=== PATIENT | male | born 1990 | race Caucasian/White ===

== ENCOUNTER 2018-03-22 17:37 | Outpatient (REF) | payer OTHER, SELFPAY ==
[2018-03-22 21:36] LABS: ALT 68 U/L (12-78); AST 38 U/L (15-37); Albumin 4.4 g/dL (3.4-5.0); Alkaline Phosphatase 61 U/L (46-116); Anion Gap 9.5 mmol/L (3-11); BUN 16 mg/dL (7-18); Bilirubin, Total 0.5 mg/dL (0.2-1.0); CO2 27.5 mmol/L (21.0-32.0); CREATININE 1.16 mg/dL (0.70-1.30); Calcium 9.5 mg/dL (8.5-10.1); Chloride 102 mmol/L (98-107); Glucose 95 mg/dL (70-100); Potassium 3.8 mmol/L (3.5-5.1); Sodium 139 mmol/L (136-145); Total Protein 7.8 g/dL (6.4-8.2)
== END 2018-03-22 17:57 ==
LOC: NCHCN 17:37
PROVIDERS: PCP Nurse Practitioner Family; Visit Provider Nurse Practitioner Family
DX: R74.0 Nonspecific elevation of levels of transaminase and lactic acid dehydrogenase [LDH] (principal); I10 Essential (primary) hypertension; E66.3 Overweight
CPT/HCPCS: 80053

== ENCOUNTER 2018-09-13 16:24 | Outpatient (REF) | payer OTHER, SELFPAY ==
[2018-09-13 21:16] LABS: ALT 58 U/L (12-78); AST 39 U/L (15-37); Albumin 4.5 g/dL (3.4-5.0); Alkaline Phosphatase 68 U/L (46-116); Bilirubin, Direct 0.22 mg/dL (0.00-0.20); Bilirubin, Total 0.7 mg/dL (0.2-1.0); Total Protein 8.2 g/dL (6.4-8.2)
== END 2018-09-13 16:44 ==
LOC: NCHCN 16:24
PROVIDERS: PCP Nurse Practitioner Family; Visit Provider Nurse Practitioner Family
DX: R74.0 Nonspecific elevation of levels of transaminase and lactic acid dehydrogenase [LDH] (principal); I10 Essential (primary) hypertension; E66.3 Overweight
CPT/HCPCS: 80076

== ENCOUNTER 2020-03-17 19:03 | Outpatient (REF) | payer OTHER, SELFPAY ==
[2020-03-19 15:30] LABS: COVID-19 RT-PCR UVMMC Result Positive (Negative)
== END 2020-03-17 19:23 ==
LOC: NCHCN 19:03
PROVIDERS: PCP Nurse Practitioner Family; Visit Provider Nurse Practitioner Family
DX: Z20.828 Contact with and (suspected) exposure to other viral communicable diseases (principal)
CPT/HCPCS: U0003

== ENCOUNTER → 2020-03-31 11:38 | Outpatient (REF) | payer OTHER, SELFPAY ==
[2020-03-31 22:33] LABS: ALT 71 U/L (16-63); AST 30 U/L (15-37); Albumin 4.7 g/dL (3.4-5.0); Alkaline Phosphatase 60 U/L (46-116); Anion Gap 7.8 mmol/L (3-11); BUN 14 mg/dL (7-18); Bilirubin, Total 0.6 mg/dL (0.2-1.0); CO2 27.2 mmol/L (21.0-32.0); CREATININE 1.02 mg/dL (0.70-1.30); Calcium 9.2 mg/dL (8.5-10.1); Calculated LDL 72 mg/dL (<100); Chloride 104 mmol/L (98-107); Cholesterol 148 mg/dL (<200); Glucose 81 mg/dL (74-106); HDL Cholesterol 37 mg/dL (40-60); Potassium 4.5 mmol/L (3.5-5.1); Sodium 139 mmol/L (136-145); Total Protein 8.2 g/dL (6.4-8.2); Triglyceride 198 mg/dL (<150)
[2020-03-31 22:46] LABS: Bilirubin, Direct 0.14 mg/dL (0.00-0.20)
== END ==
LOC: NCHCN 11:38
PROVIDERS: PCP Nurse Practitioner Family; Visit Provider Nurse Practitioner Family
DX: I10 Essential (primary) hypertension (principal); R74.01 Elevation of levels of liver transaminase levels; E66.3 Overweight
CPT/HCPCS: 80053; 80061; 80076

== ENCOUNTER 2020-06-04 03:58 | Outpatient (CLI) | payer OTHER, SELFPAY ==
--- NOTE | 2020-06-04 | DI.US_ITS ---
EXAM: US ABDOMEN CLINICAL HISTORY: ELEVATED TRANSAMINASES, R74.0 TECHNIQUE: Ultrasound abdomen performed using standard protocol. COMPARISON: No exams were available for comparison FINDINGS: ABDOMINAL AORTA AND IVC: Visualized portions normal caliber. PANCREAS: Normal where visualized. LIVER: There is diffuse increased echogenicity consistent with fatty infiltration. The liver measure s 16.3 cm in length. Hepatopedal flow in the Portal Vein. GALLBLADDER: No evidence of cholelithiasis. No evidence of wall thickening. No pericholecystic fluid identified. BILIARY SYSTEM: Common bile duct measures < 7 mm. No intrahepatic biliary ductal dilation. HAYNES'S SIGN: Negative. KIDNEYS: Kidneys are symmetric in size. No evidence of renal calculi. No evidence of hydronephrosis. No renal mass or cyst identified. SPLEEN: Not enlarged. ASCITES: None seen. IMPRESSION: Hepatic steatosis. DATA REPOSITORY:
== END 2020-06-04 04:18 ==
PROVIDERS: PCP Nurse Practitioner Family; Visit Provider Nurse Practitioner Family
DX: K76.0 Fatty (change of) liver, not elsewhere classified (principal)
CPT/HCPCS: 76700

== ENCOUNTER 2020-10-29 17:17 | Outpatient (REF) | payer OTHER, SELFPAY ==
[2020-11-04 22:00] LABS: Specimen WB Whole Blood
== END 2020-10-29 17:18 | disposition home or self-care (01) ==
LOC: NCHCN 17:17
PROVIDERS: PCP Nurse Practitioner Family; Visit Provider Nurse Practitioner Family
DX: R78.89 Finding of other specified substances, not normally found in blood (principal); K76.0 Fatty (change of) liver, not elsewhere classified; R74.01 Elevation of levels of liver transaminase levels
CPT/HCPCS: 81256

== ENCOUNTER 2022-06-30 15:48 | Outpatient (REF) | payer OTHER, SELFPAY ==
[2022-06-30 21:33] LABS: HGB 15.1 g/dL (13.5-17.5); MCH 30.1 pg (27.0-33.0); MCV 84 fL (80-95); MPV 11.5 fL (8.0-11.0); Platelet Count 337 10^3/uL (130-400); RBC 5.02 10^6/uL (4.36-5.78); RDW 11.9 % (11.8-14.1); RDW-SD 36.5 fL; WBC 6.74 10^3/uL (4.4-10.8)
[2022-06-30 21:50] LABS: ALT 95 U/L (16-63); AST 53 U/L (15-37); Albumin 4.6 g/dL (3.4-5.0); Alkaline Phosphatase 70 U/L (46-116); Anion Gap 10.3 mmol/L (3-11); BUN 15 mg/dL (7-18); Bilirubin, Total 0.6 mg/dL (0.2-1.0); CO2 26.7 mmol/L (21.0-32.0); CREATININE 1.4 mg/dL (0.70-1.30); Calcium 9.3 mg/dL (8.5-10.1); Chloride 104 mmol/L (98-107); Estimated GFR 67.64 (mL/min/1.73m2); Glucose 116 mg/dL (74-106); Potassium 3.8 mmol/L (3.5-5.1); Sodium 141 mmol/L (136-145); Total Protein 8.2 g/dL (6.4-8.2)
== END 2022-06-30 15:49 | disposition home or self-care (01) ==
LOC: NCHCN 15:48
PROVIDERS: PCP Nurse Practitioner Family; Visit Provider Nurse Practitioner Family
DX: I10 Essential (primary) hypertension (principal); K76.0 Fatty (change of) liver, not elsewhere classified; R74.01 Elevation of levels of liver transaminase levels; E66.3 Overweight
CPT/HCPCS: 80053; 85027

== ENCOUNTER 2023-01-26 16:05 | Outpatient (REF) | payer OTHER, SELFPAY ==
[2023-01-26 15:11] LABS: Abs Immature Grans 0.01 10^3/uL (0.0-0.06); Absolute Basophil Count 0.03 10^3/uL (0.0-0.2); Absolute Eosinophil Count 0.29 10^3/uL (0.0-0.7); Absolute Lymphocyte Count 2.09 10^3/uL (1.2-3.4); Absolute Monocyte Count 0.51 10^3/uL (0.1-0.8); Absolute Neutrophil Count 3.43 10^3/uL (1.2-6.7); Basophils % 0.5; Eosinophils % 4.6; HGB 15.4 g/dL (13.5-17.5); Immature Grans % 0.2; Lymphocytes % 32.9; MCH 28.7 pg (27.0-33.0); MCHC 34.2 % (32.0-36.0); MCV 84 fL (80-95); MPV 10.6 fL (8.0-11.0); Neutrophils % 53.8; Platelet Count 357 10^3/uL (130-400); RBC 5.36 10^6/uL (4.36-5.78); RDW 11.9 % (11.8-14.1); RDW-SD 35.8 fL; WBC 6.36 10^3/uL (4.4-10.8)
[2023-01-26 15:49] LABS: ALT 60 U/L (16-63); AST 28 U/L (15-37); Albumin 4.5 g/dL (3.4-5.0); Alkaline Phosphatase 73 U/L (46-116); Anion Gap 12.4 mmol/L (3-11); BUN 11 mg/dL (7-18); Bilirubin, Total 0.6 mg/dL (0.2-1.0); CO2 24.6 mmol/L (21.0-32.0); CREATININE 1.1 mg/dL (0.70-1.30); Calcium 9.4 mg/dL (8.5-10.1); Calculated LDL 51 mg/dL (<100); Chloride 103 mmol/L (98-107); Cholesterol 124 mg/dL (<200); Estimated GFR 89.78 (mL/min/1.73m2); Ferritin 481 ng/mL (26-388); Glucose 99 mg/dL (74-106); HDL Cholesterol 38 mg/dL (40-60); Potassium 4.1 mmol/L (3.5-5.1); Sodium 140 mmol/L (136-145); Total Protein 8.1 g/dL (6.4-8.2); Triglyceride 177 mg/dL (<150)
== END 2023-01-26 16:06 | disposition home or self-care (01) ==
LOC: NCHCN 16:05
PROVIDERS: PCP Nurse Practitioner Family; Visit Provider Nurse Practitioner Family
DX: I10 Essential (primary) hypertension (principal); E66.3 Overweight; K30 Functional dyspepsia; R78.89 Finding of other specified substances, not normally found in blood; N28.9 Disorder of kidney and ureter, unspecified
CPT/HCPCS: 80053; 80061; 82728; 85025

== ENCOUNTER 2024-02-01 14:41 | Outpatient (REF) | payer OTHER, SELFPAY ==
--- OUTSIDE RECORDS SUMMARY | 2024-02-01 14:53 | XMS_ITS | Encounter Summary ---
Author Organization [facility] [place] [address] Care Team Providers Care Account Services Analyst Name Role Phone Christi Oneill APRN Primary Care Provider [phone] Encounter Details Date Type Department Care Team (Late st Contact Info) Description 04/21/2019 [place]phone [place] [address] Fernando Pacheco PA [facility] [place] [address] Social History Tobacco Use Types Packs/Day Years Used Date Smoking Tobacco: Never Smokeless Tobacco: Never Alcohol Use Standard Drinks/Week Comments Not Currently 0 (1 standard drink = 0.6 oz pur e alcohol) Sex and Gender Information Value Date Recorded Sex Assigned at Not on file Gender Identity Not on file Sexual Orientation Not on file documented as of this encounter Miscellaneous Notes * Telephone Encounter - Fernando Pacheco PA - 04/21/2019 8:51 AM EST XR reviewed. Stable spinal alignment. Continue in collar for 6 more weeks and FU in clinic with repeat x-rays and likely collar clearance. Discussed with patient. documented in this encounter Plan of Treatment Not on file documented as of this encounter Visit Diagnoses Not on filedocumented in this encounter Care Teams Account Services Analyst Relationship Specialty Start Date End Date Christi Oneill APRN [address] [place] [address] PCP - General Family Medicine 03/06/19 documented as of this encounter
--- OUTSIDE RECORDS SUMMARY | 2024-02-01 14:53 | XMS_ITS | Encounter Summary ---
Author Organization [facility] [place] [address] Care Team Providers Care Batch Room Technician Name Role Phone Unavailable Primary Care Provider Unavailabl e Encounter Details Date Type Department Care Team (Late st Contact Info) Description 03/05/2019 5:40 PM EST Ancillary Procedure Radiology Library at [facility] [place] [address] Sriram Pelayo MD [facility] [place] [address] Social History Tobacco Use Types Packs/Day Years Used Date Smoking Tobacco: Never Assessed Sex and Gender Information Value Date Recorded Sex Assigned at Not on file Gender Identity Not on file Sexual Orientation Not on file documented as of this encounter Plan of Treatment Not on file documented as of this encounter Procedures Procedure Name Priority Date/Time Associated Diagnosis Comments FILM LIBRARY STORAGE ONLY CT SPINE Routine 03/05/2019 5:36 PM EST documented in this encounter Results * Film Library- Storage Only CT Spine (03/05/2019 5:36 PM EST) Narrative RAD - 03/05/2019 5:36 PM EST This exam is auto-finalizing. It's purpose is for storage only. Sriram Pelayo MD IMG FILM LIBRARY ORD ERABLES [facility] [place] documented in this encounter Visit Diagnoses Not on filedocumented in this encounter
--- OUTSIDE RECORDS SUMMARY | 2024-02-01 14:53 | XMS_ITS | Clinical Summary ---
Author Organization [facility] Address [address] [place] [address] Care Team Providers Care Certified Professional Coder Name Role Phone Unknown, Provider Primary Care Provider Unava ilable Social History Tobacco Use Types Packs/Day Years Used Date Smoking Tobacco: Never Assessed Interpersonal Safety Answer Date Record ed Physically Hurt Never 03/18/2020 Verbally Threaten Not on file 03/18/2020 Sex and Gender Information Value Date Recorded Sex Assigned at Not on file Gender Identity Not on file Sexual Orientation Not on file Plan of Treatment Health Maintenance Due Date Last Done Comments Hepatitis C Screen 1990 Hepatitis B Vaccine (1 of 3 - 19+ 3-dose series) 01/03 COVID-19 Vaccine (2022- season) 2022 Care Teams Certified Professional Coder Relationship Specialty Start Date End Date Unknown, Provider, PCP - General 10/07/21
--- OUTSIDE RECORDS SUMMARY | 2024-02-01 14:53 | XMS_ITS | Encounter Summary ---
Author Organization [facility] Address [address] [place] [address] Care Team Providers Care Lease Administration Analyst Name Role Phone Unknown, Provider Primary Care Provider Unava ilable Encounter Details Date Type Department Care Team (Late st Contact Info) Description 03/18/2020 Lab Requisition [facility] Pathology & Laboratory Medicine - [facility] [address] [place] [address] Outr Resulting Lab, Provider Social History Tobacco Use Types Packs/Day Years [...] Procedure Name Priority Date/Time Associated Diagnosis Comments ZZCOVID-19 TEST [facility] PCR Today 03/17/2020 13:10 EST COVID-19 TESTING Routine 03/17/2020 13:1 0 EST documented in this encounter Results * COVID-19 TEST [facility] PCR (03/17/2020 13:10 EST) Swab ENTIRE NASOPHARYNX / Unknown 03/17/2020 13:10 EST 03/18/2020 16:56 EST Provider Outr Resulting Lab MICROBIOLOGY - GENERAL ORDERABLES [facility] [address] [place] [address] * (ABNORMAL) COVID-19 TESTING (03/17/2020 13:10 EST) COVID-19 rt-PCR Result Positive(AA) Negative 03/19/2020 14:36 EST [facility] Comment: Positive results are indicative of active infection with 2019-nCoV but do not rule out bacterial infection or co-infection with other viruses. This test was developed and its performance characteristics determined by [facility]. It has not been cleared or approved by the US Food and Drug Administration. FDA does not require this test to go through premarket FDA review. This test is used for clinical purposes. It should not be regarded as investigational or for research. This laboratory is certified under the Clinical Laboratory Improvement Amendments (CLIA) as qualified to perform high complexity clinical laboratory testing. This test is based on the CDC COVID-19 Emergency Use Authorization (EUA) assay, with minor modification as defined by the FDA Performed on the [employer] 7 Flex. Performing Lab [employer] 7 [facility] 03/19/2020 14:36 EST [facility] Swab 03/17/2020 13:1 0 EST 03/18/2020 16:56 EST Provider Outr Resulting Lab MICROBIOLOGY - GENERAL ORDERABLES [facility] [address] [place] [address] documented in this encounter Visit Diagnoses Not on filedocumented in this encounter Additional Health Concerns Infection Onset Date Last Indicated Resolved Time COVID-19 03/17/2020 03/17/2020 04/16/2020 22:1 5 EST documented as of this encounter Care Teams Lease Administration Analyst Relationship Specialty Start Date End Date Unknown, Provider, PCP - General 10/07/21 documented as of this encounter
--- OUTSIDE RECORDS SUMMARY | 2024-02-01 14:53 | XMS_ITS | Encounter Summary ---
Author Organization [facility] Address [facility] [place] [address] Care Team Providers Care Practice Professional Name Role Phone NinoJoan neveshrlatricia Mcneill [place] Primary Care Provider [phone] Reason for Visit * Reason Comments Advice Only mildly displaced fle xion teardrip fracture of C3 vertebral body * Consultation (Routine) - Specialty Diagnoses / Procedures Referred By Contac t Referred To Contact Neurosurgery Diagnoses Unspecified injury of neck, initial encounter Unspecified nondisplaced fracture of third cervical vertebra, initial encounter for closed fracture Mildly displaced flexion teardrop fracture of C3 vertebral body. Procedures WORKER'S COMP Nathaniel Gil PA [address] [place] [id number] [facility] [address] [place] [address] Referral ID Status Reason Start Date Expiration Date V isits Requested Visits Authorized [id number] Consult, [facility] PCP Updated and/or Approved 03/06/2019 03/05/2020 1 1 Encounter Details Date Type Department Care Team (Late st Contact Info) Description 03/12/2019 1:30 PM EST Office [place] [address] Fernando Pacheco PA [facility] [place] [address] Closed displaced fracture of third cervical vertebra, unspecified fracture morphology, initial encounter Social History Tobacco Use Types Packs/Day Years Used Date Smoking Tobacco: Never Smokeless Tobacco: Never Alcohol Use Standard Drinks/Week Comments Not Currently 0 (1 standard drink = 0.6 oz pur e alcohol) Sex and Gender Information Value Date Recorded Sex Assigned at Not on file Gender Identity Not on file Sexual Orientation Not on file documented as of this encounter Last Filed Vital Signs Vital Sign Reading Time Taken Comments Blood Pressure 164/86 03/12/2019 1:34 PM EST Pulse 98 03/12/2019 1:34 PM EST Temperature - - Respiratory Rate - - Oxygen Saturation - - Inhaled Oxygen Concentration - - Weight 115.9 kg (255 lb 8.2 oz) 03/12/2019 1:34 PM EST Height 195.6 cm (6' 5) 03/12/2019 1:34 PM EST Body Mass Index 30.3 03/12/2019 1:34 PM EST documented in this encounter Progress Notes * Fernando Pacheco PA - 03/12/2019 1:30 PM EST Images from the original note were not included. Section of Neurosurgery Initial Consultation Note 03/12/2019 Nathaniel Gil PA [address] [place] [address] RE: Sriram Hobson : [address] Gil: Thank you for referring your patient Sriram Hobson to the Neurosurgery Clinic at [facility] for evaluation of a C3 anterior inferior chip fracture as a result of being struck in the head with the bucket of an excavator. This happened about a week ago while working at his job.He continued to work for six hours after his injury. He presented to his local urgent care center for evaluation of neck pain. He was placed in a hard cervical [place] collar after discovery of the fracture. Mr. Hobson continues to note low cervical neck pain with radiation, numbness, tingling, weakness, gait disturbance, or bowel/bladder dysfunction. He continues to work, light duty. PAST MEDICAL HISTORY: No past medical history on file. PAST SURGICAL HISTORY: No past surgical history on file. SOCIAL HISTORY: Social History Tobacco Use ??? Smoking status: Never Smoker ??? Smokeless tobacco: Never Used Substance Use Topics ??? Alcohol use: Not Currently ??? Drug use: Not Currently FAMILY HISTORY: No family history on file. CURRENT MEDICATIONS: ??? losartan (COZAAR) 100 mg Tablet ??? metoprolol succinate XL (TOPROL-XL) 25 mg Tablet Sustained Release 24 hr ??? acetaminophen (TYLENOL) 325 mg Suppository ALLERGIES: No Known Allergies REVIEW OF SYSTEMS: Full ROS completed. Pertinent findings per HPI. PHYSICAL EXAMINATION: Blood pressure 164/86, pulse 98, height 195.6 cm (6' 5), weight 115.9 kg (255 lb 8.2 oz). Awake, alert, and in no acute distress. Speech: Appropriate and fluent; answers questions appropriately. Cranial Nerves: II-XII grossly intact. Motor: Normal muscle bulk and tone. No pronator drift. Strength 5/5 in straw baler, triceps, biceps, and deltoids bilaterally. Strength 5/5 in hip flexion, knee extension, DF, and PF bilaterally. Sensation: Grossly intact to light touch in all four extremities. Reflexes: Biceps, BR, achilles, and patellar reflexes intact and symmetric; no hyperreflexia. Germain's negative bilaterally. Cerebellar: No dysmetria with finger to nose testing bilaterally. Gait: Independent and stable. Neck: Immobilized with [place] collar - good fit. RADIOGRAPHIC STUDIES: CT cervical spine wo contrast 03/05/2019 C3 anterior inferior chip fracture with. Straightening versus reversal of normal cervical lordosis centered at C3-4. XR cervical spine 03/05/2019 Re demonstrated C3 anterior inferior chip fracture and straightening of cervical lordosis. Questionable 1-2 mm retrolisthesis of C3 on C4. IMPRESSION AND PLAN: Mr. Hobson is a 29 y.o. male presenting with a C3 anterior inferior chip fracture and possible anterior longitudinal ligament injury. Based on my findings I suggest the following course of action: 1. Trial of conservative non-operative management for cervical spine fracture with probable ALL injury 2. Must wear hard cervical collar at all times (estimated 10-12 weeks in collar) 3. Activity restrictions - no lifting more than 10 lbs, no strenuous activity 4. No driving 5. Follow up x-rays in 4-6 weeks It was my pleasure to have seen and examined Mr. Hobsno. In our visit today, we discussed the patient's current condition, the natural course history without treatment and various interventional options. I will be sure to keep you updated after Mr. Hobson returns here for further follow-up. Thank monaein for your referral. Please don't hesitate to contact me if you have any further questions. Sincerely, Fernando Pacheco PA-C, MS Physician [employer] [facility] Department of Neurosurgery [address] [place] [id number] CC: Christi Oneill APRN CC: Nathaniel Gil PA [address] [place] [address] This message is confidential, intended only for the named recipient(s) and may contain information that is privileged or exempt from disclosure under applicable law. If you are not the intended recipient(s), you are notified that the dissemination, distribution or copying of this information is strictly prohibited. If you received this message in error, please notify the sender then delete this message. documented in this encounter Plan of Treatment Not on file documented as of this encounter Results * XR Cervical Spine 2 or 3 Views (05/27/2019 10:21 AM EST) Anatomical Region Laterality Modality C-spine N/A Digital Radiogra phy Impressions 05/27/2019 11:55 AM EST 1. ??Displaced C3 anterior inferior teardrop fracture redemonstrated. There is equivocal bridging bone callus deposition. 2. ??No subluxation seen. Thank you for letting us participate in the care of this patient. For questions regarding this report, please contact the number below. ? Narrative 05/27/2019 11:55 AM EST EXAMINATION: XR CERVICAL SPINE 2 OR 3 VIEWS CLINICAL HISTORY: C3 fracture, follow up, please do AP and lateral, standing in collar, , ??entered by ordering service TECHNIQUE: 2 views cervical spine, AP lateral views COMPARISON: Outside CT scan of spine, March 2019 FINDINGS: C1 to bottom of C7 are visualized. Vertebral bodies: C3- displaced flexion teardrop fracture of anterior-inferior corner is similar to CT examination. There is suggestion of bridging bone at fracture site. Disk spaces: Normal. Soft tissues: Normal. ?? Alignment: No subluxation. Loss of normal cervical lordosis in part related to collar. Procedure Note Lisa Caruso MD - 05/27/2019 EXAMINATION: XR CERVICAL SPINE 2 OR 3 VIEWS CLINICAL HISTORY: C3 fracture, follow up, please do AP and lateral,standing in collar, , entered by ordering service TECHNIQUE: 2 views cervical spine, AP lateral views COMPARISON: Outside CT scan of spine, March 2019 FINDINGS: C1 to bottom of C7 are visualized. Vertebral bodies: C3- displaced flexion teardrop fracture of anterior-inferior corner issimilar to CT examination. There is suggestion of bridging bone at fracturesite. Disk spaces: Normal. Soft tissues: Normal. Alignment: No subluxation. Loss of normal cervical lordosis in partrelated to collar. IMPRESSION 1. Displaced C3 anterior inferior teardrop fracture redemonstrated. Thereis equivocal bridging bone callus deposition. 2. No subluxation seen. Thank you for letting us participate in the care of this patient. Forquestions regarding this report, please contact the number below. Electronically signed by: ELEANOR Aparicio On License Of [facility]([phone]), at 05/27/2019 11:55 AM Trey Odonnell MD IMG DX ORDERABLES documented in this encounter Visit Diagnoses Diagnosis Closed displaced fracture of third cervical vertebra, unspecified fracture morphology, initial encounter Closed displaced fracture of third cervical vertebra, unspecified fracture morphology, initial encounter documented in this encounter Care Teams Practice Professional Relationship Specialty Start Date End Date Christi Oneill APRN [address] [place] [address] PCP - General Family Medicine 03/06/19 documented as of this encounter
--- OUTSIDE RECORDS SUMMARY | 2024-02-01 14:53 | XMS_ITS | Encounter Summary ---
Author Organization [facility] [place] [address] Care Team Providers Care Instrument Worker Name Role Phone Unavailable Primary Care Provider Unavailabl e Encounter Details Date Type Department Care Team (Late st Contact Info) Description 03/05/2019 8:30 PM EST Ancillary Procedure Radiology Library at [facility] [place] [address] Sriram Pelayo MD [facility] [place] [address] Social History Tobacco Use Types Packs/Day Years [...] Associated Diagnosis Comments FILM LIBRARY STORAGE ONLY DX SPINE Routine 03/05/2019 8:26 PM EST documented in this encounter Results * Film Library- Storage Only DX Spine (03/05/2019 8:26 PM EST) Narrative RAD - 03/05/2019 8:26 PM EST This exam is auto-finalizing. It's purpose is for storage only. Sriram Pelayo MD IMG FILM LIBRARY ORD ERABLES [facility] [place] documented in this encounter Visit Diagnoses Not on filedocumented in this encounter
--- OUTSIDE RECORDS SUMMARY | 2024-02-01 14:53 | XMS_ITS | Clinical Summary ---
Author Organization [facility] Address [address] [facility] [place] [address] Care Team Providers Care Crisis Worker Name Role Phone Christi Oneill [place] Primary Care Provider [phone] [phone] Allergies No known active allergies Medications Medication Sig Dispensed Refills Start Date End Date Status losartan (COZAAR) 100 mg Tablet TAKE ONE TABLET BY MOUTH EVERY DAY 3 12/27/2018 Active metoprolol succinate XL (TOPROL-XL) 25 mg Tablet Sustained Release 24 hr TAKE ONE TABLET BY MOUTH EVERY DAY 3 12/27/2018 Active Active Problems No known active problems Social History Tobacco Use Types Packs/Day Years Used Date Smoking Tobacco: Never Smokeless Tobacco: Never Alcohol Use Standard Drinks/Week Comments Not Currently 0 (1 standard drink = 0.6 oz pur e alcohol) Sex and Gender Information Value Date Recorded Sex Assigned at Not on file Gender Identity Not on file Sexual Orientation Not on file Last Filed Vital Signs Vital Sign Reading Time Taken Comments Blood Pressure 151/88 08/13/2020 8:51 AM EDT Pulse 58 08/13/2020 8:51 AM EDT Temperature - - Respiratory Rate - - Oxygen Saturation - - Inhaled Oxygen Concentration - - Weight 118.8 kg (262 lb) 08/13/2020 8:51 AM EDT Height 195.6 cm (6' 5) 08/13/2020 8:51 AM EDT Body Mass Index 31.07 08/13/2020 8:51 AM EDT Plan of Treatment Health Maintenance Due Date Last Done Comments HIV screen 01/03/2006 Hepatitis C Screening 01/03/2006 Lipid Screening 01/03/2006 Hepatitis B vaccine (0-59 yrs) (1) 01/03/2007 Tetanus/Diphtheria/Pertussis Vaccines (1 - Tdap) 01/03 Covid-19 Vaccine (1 - 2023-24 season) 2023 Influenza (Flu) vaccine (1 o f 1 - Influenza standard series) 12/02/2023 Care Teams Crisis Worker Relationship Specialty Start Date End Date Christi Oneill APRN [address] [place] [address] PCP - General Family Medicine 03/06/19
--- OUTSIDE RECORDS SUMMARY | 2024-02-01 14:53 | XMS_ITS | Encounter Summary ---
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 Please allow time for your provider to receive these results and explore management options, if applicable. 10/12/2021 11:[address] [facility] Final Diagnosis A. MAXILLA, RIGHT, CYST, EXCISION: - Markedly inflamed cyst lining with focal squamous epithelium. 10/12/2021 11:[address] [facility] Diagnosis Comment Sections show cyst wall with abundant acute and chronic inflammation and histiocytes. Only focal intact squamous epithelium is present for evaluation, without features of odontogenic keratocyst. Clinical and radiographic correlation is required to determine the cyst type. 10/12/2021 11:[address] [facility] Attestation There was significant resident/fellow involvement in the diagnostic evaluation of this case. By the signature below, the attending physician certifies that they have personally conducted a gross and/or microscopic examination of the described specimens and rendered or confirmed the above diagnosis. 10/12/2021 11:[address] [facility] at 1148 Clinical History 1 year history 1.0 x 1.5 cm radiolucency of R maxilla; cystic appearing lesion with lining as well as luminal material; clinical diagnosis code: D16.4 10/12/2021 11:[address] [facility] Gross Description A. Received in formalin labelled with proper patient identification (initials P, N) and cyst right maxilla are fragmented soft and slightly rubbery brown sabillon tissue fragments aggregating 2.0 x 1.4 x 1.0 cm. Entirely submitted in A1. MOLLY HEDRICK(ASCP) 10/10/2021 9:35 10/12/2021 11:[address] [facility] Resident/Elroy w: Carrillo Lozano DO 10/12/2021 11:[address] [facility] Performing Lab [facility] 10/12/2021 11:[address] [facility] Scanned Images 10/12/2021 11:[address] [facility] Tissue ORAL CAVITY SPECIMEN / Unknown 10/07/2021 9:56 EDT 10/10/2021 6:27 EDT Colton Kessler MD DMD PATHOLOGY ORDERAB LES 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
--- OUTSIDE RECORDS SUMMARY | 2024-02-01 14:53 | XMS_ITS | Encounter Summary ---
Author Organization [facility] [place] [address] Care Team Providers Care Supervisor [facility] Name Role Phone Christi Oneill APRN Primary Care Provider [phone] Reason for Visit * Consultation (Routine) - Closed Specialty Diagnoses / Procedures Referred By Yaima engel Referred To Contact Gastroenterology Diagnoses Fatty (change of) liver, not elsewhere classified Elevation of levels of liver transaminase levels liver- fatty liver Christi Oneill APRN [address] [place] [address] [facility] [address] [address] Referral ID Status Reason Start Date Expiration Date V isits Requested Visits Authorized [id number] Closed Consult, Test & Treat Connection [facility] PCP Updated and/or Approved 06/11/2020 06/11/2021 6 6 Encounter Details Date Type Department Care Team (Late st Contact Info) Description 08/13/2020 9:00 AM EDT Office [place] [address] Chelsea Reyes MD [facility] [place] [address] Elevated liver enzymes Social History Tobacco Use Types Packs/Day Years [...] Mass Index 31.07 08/13/2020 8:51 AM EDT documented in this encounter Patient Instructions * Patient Instructions* Chelsea Reyes MD - 08/13/2020 9:00 AM EDT - Lab work today to look for causes of liver disease - Diet and exercise with goal weight loss of 10% total body weight (26 lbs) - Follow up via the [facility] portal documented in this encounter Progress Notes * Chelsea Reyes MD - 08/13/2020 9:00 AM EDT Images from the original note were not included. 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 year old who had liver enzymes checked as part of physical in 2019 which were mildly elevated. His enzymes have remained mildly elevated on labs in 03/2020 and ultrasound noted hepatic steatosis. He has a history of hypertension. No hyperlipidemia or high blood glucose. Hewould previously drink a few (2-3) alcoholic beverages on weekends, but stopped 6 weeks. No family history of liver disease. He has three tattoos, all professionally done, he has been checked hepatitis B and C since his last tattoo. No other risk factors for viral hepatitis. No jaundice, melena, ascites, or hepatic encephalopathy. 12/30/20 ROS: Constitutional: no weight loss HEENT: no visual changes, no URI symptoms Cardio: no chest pain Resp: no cough, no SOB, no SANTANA or orthopnea Hem/Lymph: no new lumps or bumps on body GI: see HPI : no dysuria Integumentary: no new rashes Musculoskeletal: no new joint pains Neuro: no new numbness, weakness in extremities PAST MEDICAL/SURGICAL HISTORY 1. Hypertension MEDICATIONS Outpatient Medications Marked as Taking for the 08/13/20 encounter (Office Visit) with Sara Reyes MD Medication Sig Dispense Refill ??? losartan (COZAAR) 100 mg Tablet TAKE ONE TABLET BY MOUTH EVERY DAY 3 ??? metoprolol succinate XL (TOPROL-XL) 25 mg Tablet Sustained Release 24 hr TAKE ONE TABLET BY MOUTH EVERY DAY 3 ALLERGIES No Known Allergies SOCIAL HISTORY Social History Socioeconomic History ??? Marital status: Unknown Spouse name: Not on file ??? Number of children: Not on file ??? Years of education: Not on file ??? Highest education level: Not on file Occupational History ??? Not on file Tobacco Use ??? Smoking status: Never Smoker ??? Smokeless tobacco: Never Used Substance and Sexual Activity ??? Alcohol use: Not Currently ??? Drug use: Not Currently ??? Sexual activity: Not on file Other Topics Concern ??? Not on file Social History Narrative ??? Not on file Social Determinants of Health Financial Resource Strain: ??? Difficulty of Paying Living Expenses: Food Insecurity: ??? Worried About Running Out of Food in the Last Year: ??? Ran Out of Food in the Last Year: Transportation Needs: ??? Lack of Transportation (Medical): ??? Lack of Transportation (Non-Medical): Physical Activity: ??? Days of Exercise per Week: ??? Minutes of Exercise per Session: Stress: ??? Feeling of Stress : Social Connections: ??? Frequency of Communication with Friends and Family: ??? Frequency of Social Gatherings with Friends and Family: ??? Attends [employer] Services: ??? Active Member of Clubs or Organizations: ??? Attends Club or Organization Meetings: ??? Marital Status: Intimate Partner Violence: ??? Fear of Current or Ex-Partner: ??? Emotionally Abused: ??? Physically Abused: ??? Sexually Abused: FAMILY HISTORY There is no family history of inflammatory bowel disease, celiac disease, or colorectal cancer. There is no history of liver disease. Vitals: 08/13/20 0851 BP: 151/88 BP Location (NBP): Left arm Patient Position: Sitting BP Cuff Sizes: Adult (25-34 cm) Pulse: 58 Weight: 118.8 kg (262 lb) Height: 195.6 cm (6' 5) PHYSICAL EXAM General: Appears stated age, NAD Eyes: Normal sclera, normal conjunctiva ENT: Moist mucus membranes, normal posterior pharynx Lymph: No lymphadenopathy of the head or neck Heart: Heart sounds I and II were audible, no added sounds, no murmurs Lungs: Clear to ausculation bilaterally Abdomen: Soft, non-tender, no organomegaly, normal active bowel sounds Extremities: No peripheral edema Skin: No jaundice, no spider nevi, no palmar erythema Neuro: No asterixis, grossly intact Mental: Appropriate affect, oriented in person, place, and time RESULTS See HPI Fibroscan Results: Mean kPa: Elevated liver enzymes Mean IQR: 17% (goal is <30 %) Success rate: 100% (goal is >60%) Predicted fibrosis stage: F0-1 CAP: 356 ASSESSMENT/PLAN #1 Elevated liver enzymes, MCDANIEL We discussed based on risk factors that nonalcoholic steatohepatitis is the most likely cause of his mild liver enzyme elevation. However, other causes of liver disease need to be out ruled includingautoimmune hepatitis, PBC, alpha-1 antitrypsin deficiency, hemochromatosis, Sameer's, and celiac disease. I will work on obtaining prior viral hepatitis serologies from his PCPs office. Fortunately, his FibroScan today did not note any significant fibrosis. Discussed a goal weight loss of 10% of total body weight to help improve hepatic steatosis. I will follow-up with him via the my portal onthe results of his blood work. If no other causes of liver disease are found I would recommend annual CBC and CMP through his PCP. His age, platelet count, AST, and ALT can be used annually to calculate a FIB-4 score. If the FIB-4 score is greater than 1.45 would recommend referral back to hepatology clinic. Chelsea Ryees MD Hepatology and Gastroenterology [facility] JAYLAN Artis V: [phone] Copy: Christi H BENTON Oneill [address] / [facility] [address] Time spent reviewing records prior to this encounter: 3 minutes Time spent during encounter with patient including counselin minutes Time spent documenting encounter after office visit: 3 minutes Approximate total time devoted to this single encounter on the day of the encounter: 48 minutes This is exclusive of the time spent performing the Fibroscan procedure. documented in this encounter Procedure Notes * Chelsea Reyes MD - 08/13/2020 9:00 AM EDTAssociated Order(s): FIBROSCAN Procedure(s): FIBROSCAN Pre-Procedure Diagnose(s): Elevated liver enzymes [facility] Liver Fibrosis Assessment Report Indication: Elevated liver enzymes Performed by: Chelsea Reyes MD Procedure: Vibration Controlled Transient Elastography (VCTE) or Fibroscan [place] Protocol: Patient's identity, procedure and site were verified, confirmatory pause performed. Discussed procedure including risks and potential complications. Questions answered. Patient verbalizes understanding and wishes to proceed with Fibroscan assessment. Patient was placed in the supine position with right arm in maximum abduction to allow optimal exposure of right lateral abdomen. Patient was briefly assessed. Testing was performed in the mid-axillary location. 50Hz Shear Wave pulses were applied and the resulting Shear Wave and Propagation Speed was detected with a 3.5MHz ultrasonic signal, using the Fibroscan probe. Skin to liver capsule distance and liver parenchyma were accessed during the entire examination with the Fibroscan probe. Patient was instructed to breathe normally and abstain from sudden movements during the procedure. At least ten Sheer Waves were produced; individual measurements of each Shear Wave were calculated. Patient tolerated the procedure well with no complications. Fibroscan Results: Median kPa: 4.1 Mean IQR: 17% (goal is <30 %) Number of valid measurements: 11 (at least 10 required) Number of invalid measurements: 0 Predicted fibrosis stage: F0-1 CAP (dB/m): 356 Estimated steatosis grade: 3/3 % hepatocytes affected: >66% Interpretation: Based on this Fibroscan result, history, clinical examination and review of laboratory and radiological data, this patient likely has stage F0-1 liver fibrosis. documented in this encounter Plan of Treatment Not on file documented as of this encounter Procedures Procedure Name Priority Date/Time Associated Diagnosis Comments HEMOGRAM Routine 08/13/2020 10:06 AM EDT Elevated liver enzymes DIFFERENTIAL, AUTOMATED Routine 08/14/19 10:06 AM EDT Elevated liver enzymes HC IRON BINDING CAPACITY Routine 08/13/2020 10:06 AM EDT Elevated liver enzymes HC A1AT (ALPHA-1 ANTITRYPSIN) Routine 08/13/2020 10:06 AM EDT Elevated liver enzymes HC PCH MITOCHONDRIAL ANTIBODY Routine 08/13/2020 10:06 AM EDT Elevated liver enzymes HC VENIPUNCTURE Routine 08/13/2020 10:06 AM EDT Elevated liver enzymes HC CERULOPLASMIN Routine 08/13/2020 10:0 6 AM EDT Elevated liver enzymes HC PCH SMOOTH MUSCLE AB, SERUM Routine 08/13/2020 10:06 AM EDT Elevated liver enzymes HC PROTHROMBIN TIME Routine 08/13/2020 1 0:06 AM EDT Elevated liver enzymes HC CBC,PLT & AUTO DIFF Routine 10:06 AM EDT Elevated liver enzymes HC PCH ANATITRE (ANDPATTERN) Routine 08/13/2020 10:06 AM EDT Elevated liver enzymes HC SERUM PROT. ELECTROPHORESIS Routine 08/13/2020 10:06 AM EDT Elevated liver enzymes HC IGG, SERUM Routine 08/13/2020 10:06 AM EDT Elevated liver enzymes HC FERRITIN, SERUM Routine 08/13/2020 10 :06 AM EDT Elevated liver enzymes COMPREHENSIVE METABOLIC PANEL Routine 08/13/2020 10:06 AM EDT Elevated liver enzymes [id number] Routine 08/13/2020 9:00 AM EDT Elevated liver enzymes documented in this encounter Results * Differential, Automated (08/13/2020 10:06 AM EDT) Neutrophil % 48.5 % [facility] Neutrophil Absolute 2.99 1.70 - 6.10 x10(3)/[facility] Lymph % 38.3 % [facility] Lymphocytes Abs 2.4 0.9 - 3.2 x10(3)/[facility] Monocyte % 8.3 % [facility] Monocyte Abs 0.5 0.3 - 0.9 x10(3)/[facility] Eos % 4.4 % [facility] Eosinophils Abs 0.3 0.0 - 0.4 x10(3)/[facility] Basophil % 0.3 % [facility] Baso Absolute 0.0 0.0 - 0.1 x10(3)/[facility] Immature Gran % 0.20 % [facility] Comment: Immature granulocytes(IG's)percentage and absolute count will include metamyelocytes, myelocytes, and promyelocytes. Blood smears from CBCs yielding IG's will be scanned manually for concordance. If this scan disagrees with the automated IG or if promyelocytes are noted, a manual differential will be performed. Immature Gran Absolute 0.01 0.00 - 0.04 x10(3)/[facility] Blood specimen (specimen) 08/13/2020 10:06 AM EDT 08/13/2020 10:12 AM EDT Narrative Resulting Agency Comment Spec In Lab Chelsea Reyes MD HEMATOLOGY ORDERABLE S [facility] [place] [address] * Hemogram (08/13/2020 10:06 AM EDT) [facility] White Blood Cell 6.2 4.0 - 9.5 x10(3)/[facility] Red Blood Cell 5.13 4.58 - 5.54 x10(6)/[facility] Hemoglobin 14.9 13.7 - 16.5 gm/dL [facility] Hematocrit 43.6 40.5 - 48.5 % [facility] Mean Cell Volume 85.0 82.9 - 93.1 fL [facility] Mean Cell Hemoglobin 29.0 27.5 - 32.1 pg [facility] Mean Cell Hemoglobin Concentration 34.2 32.0 - 35.7 gm/dL [facility] Platelet 296 145 - 357 x10(3)/[facility] RDW Standard Deviation 36.2 36.0 - 45.0 [facility] RDW coefficient of variation 11.9 11.4 - 13.8 % [facility] Mean Platelet Volume 9.8 7.6 - 12.9 [facility] NRBC% auto 0.0 % [facility] NRBC Absolute 0.000 0.000 - 0.000 x10(3)/[facility] Blood specimen (specimen) 08/13/2020 10:06 AM EDT 08/13/2020 10:12 AM EDT Narrative Resulting Agency Comment Spec In Lab Chelsea Reyes MD HEMATOLOGY ORDERABLE S [facility] [place] [address] * Tissue transglutaminase, IgA (08/13/2020 10:06 AM EDT) Pathologist [facility] TTG IgA Ab 1.0 0.1 - 10.0 u/ml [facility] Comment: Negative = <7 U/mL Equivocal = 7-10 U/mL Positive = >10 U/mL Blood 08/13/2020 10:0 6 AM EDT 08/13/2020 3:04 PM EDT Narrative Resulting Agency Comment Spec In Lab Chelsea Reyes MD IMMUNOLOGY ORDERABLE S Performing Organization Address City/[facility]/ZIP Co de Phone Number [facility] [place] [address] * Ceruloplasmin (08/13/2020 10:06 AM EDT) Ceruloplasmin 15.0 15.0 - 30.0 mg/dL [facility] Blood specimen (specimen) 08/13/2020 10:06 AM EDT 08/13/2020 10:12 AM EDT Narrative Resulting Agency Comment Spec In Lab Chelsea Reyes MD CHEMISTRY ORDERABLES Performing Organization Address [facility] Co de Phone Number [facility] [place] [address] * A1AT Serum Concentration (08/13/2020 10:06 AM EDT) [facility] A1AT 112 90 - 200 mg/dL [facility] Blood specimen (specimen) 08/13/2020 10:06 AM EDT 08/13/2020 10:12 AM EDT Narrative Resulting Agency Comment Spec In Lab Chelsea Reyes MD CHEMISTRY ORDERABLES Performing Organization Address [facility] Co de Phone Number [facility] [place] [address] * (ABNORMAL) Ferritin (08/13/2020 10:06 AM EDT) Ferritin 616(H) 30 - 400 ng/mL [facility] Comment: Pediatric reference ranges not verified at [facility] interpret with caution. Reference ranges for females greater than 50 years of age approach values for men, i.e., 30-400 ng/mL. Blood specimen (specimen) 08/13/2020 10:06 AM EDT 08/13/2020 10:12 AM EDT Narrative Resulting Agency Comment Spec In Lab Chelsea Reyes MD CHEMISTRY ORDERABLES Performing Organization Address City/[facility]/ZIP Co de Phone Number [facility] [place] [address] * (ABNORMAL) Iron and TIBC (08/13/2020 10:06 AM EDT) Iron 133 45 - 160 mcg/dL [facility] TIBC 253 250 - 450 mcg/dL [facility] Iron Saturation 53(H) 20 - 50 % [facility] Blood specimen (specimen) 08/13/2020 10:06 AM EDT 08/13/2020 10:12 AM EDT Narrative Resulting Agency Comment Spec In Lab Chelsea Reyes MD CHEMISTRY ORDERABLES Performing Organization Address City/[facility]/ZIP Co de Phone Number [facility] [place] [address] * Protein Electrophoresis, serum (08/13/2020 10:06 AM EDT) Total Prot Electrophoresis 7.6 6.1 - 8.0 gm/dL [facility] Albumin Electrophoresis 5.08 3.60 - 6.00 gm/dL [facility] Alpha 1 Globulin 0.13 0.10 - 0.30 gm/dL [facility] Alpha 2 Globulin 0.55 0.40 - 0.90 gm/dL [facility] Beta Globulin 0.65 0.50 - 1.00 gm/dL [facility] Gamma Globulin 1.18 0.50 - 1.30 gm/dL [facility] M1 Band None Detected None Detected [facility] Blood specimen (specimen) 08/13/2020 10:06 AM EDT 08/13/2020 10:12 AM EDT Narrative Resulting Agency Comment Spec In Lab Chelsea Reyes MD CHEMISTRY ORDERABLES Performing Organization Address [facility]/ZIP Co de Phone Number [facility] [place] [address] * IgG (08/13/2020 10:06 AM EDT) Immunoglobulin G 1,443 700 - 1,600 mg/dL [facility] Comment: Pediatric Reference Intervals obtained from the Caliper Reference Interval project. http://www.[employer].ca/caliperproject/index.html Blood specimen (specimen) 08/13/2020 10:06 AM EDT 08/13/2020 10:12 AM EDT Narrative Resulting Agency Comment Spec In Lab Chelsea Reyes MD CHEMISTRY ORDERABLES Performing Organization Address [facility] Co de Phone Number [facility] [place] [address] * Mitochondrial Antibody, M2 (08/13/2020 10:06 AM EDT) Pathologist [facility] Mitochon Ab (JULY) <0.1 <0.1 (Negative) U [facility] Comment: Test Performed by: [facility] [place] [address] Remote Sensing Technologist: Eliazar Garcia M.D. Ph.D.; CLIA# [id number] Blood 08/13/2020 10:0 6 AM EDT 08/13/2020 12:49 PM EDT Narrative Resulting Agency Comment Spec In Lab Chelsea Reyes MD LAB SEND OUT ORDERAB LES Performing Organization Address [facility] Co de Phone Number [facility] [place] [address] * Smooth Muscle Antibody (08/13/2020 10:06 AM EDT) Pathologist [facility] Sm Muscle Ab (MAY) Negative Negative [facility] Comment: Negative: No further testing will be performed ADDITIONAL INFORMATION This test was developed and its performance characteristics determined by [facility] in a manner consistent with CLIA requirements. This test has not been cleared or approved by the U.S. Food and Drug Administration. Test Performed by: [facility] [address] [place] [address] Remote Sensing Technologist: Eliazar Garcia M.D. Ph.D.; CLIA# [id number] Blood 08/13/2020 10:0 6 AM EDT 08/13/2020 12:49 PM EDT Narrative Resulting Agency Comment Spec In Lab Chelsea Reyes MD LAB SEND OUT ORDERAB LES [facility] [place] [address] * NELLY ([facility]P/APD/[facility]) (08/13/2020 10:06 AM EDT) NELLY Ab Screen Test ?Result ? Flag ??Unit ??RefValue Antinuclear Ab, HEp-2 ? <1:80 (Negative) ? <1:80 (Negative) ??Substrate, S ? ADDITIONAL INFORMATION --------- ?Method: Immunofluorescence using HEp-2 cellular substrate. ?Test Performed by: ?[facility] ?[address] [place] [address] ?Remote Sensing Technologist: Eliazar Garcia M.D. Ph.D.; IA# [id number] [facility] Blood 08/13/2020 10:0 6 AM EDT 08/13/2020 12:49 PM EDT Narrative Resulting Agency Comment Spec In Lab Chelsea Reyes MD LAB SEND OUT ORDERAB LES Performing Organization Address [facility] Co de Phone Number [facility] [place] [address] * Prothrombin Time (08/13/2020 10:06 AM EDT) Prothrombin Time 11.1 9.4 - 12.5 sec [facility] International Normalization Ratio 1.0 [facility] Comment: An INR <2.0 indicates adequate procoagulant activity for hemostasis in most patients without underlying bleeding disorders, though the INR may not adequately reflect hemostatic capacity in patients with liver disease and synthetic impairment. The recommended target INR range for therapeutic anticoagulation is 2.0 ? 3.0 for most applications, though lower and higher ranges may be appropriate depending on clinical circumstances. Blood specimen (specimen) 08/13/2020 10:06 AM EDT 08/13/2020 10:12 AM EDT Narrative Resulting Agency Comment Spec In Lab Chelsea Reyes MD HEMATOLOGY ORDERABLE S Performing Organization Address [facility]/ZIP Co de Phone Number [facility] [place] [address] * (ABNORMAL) Comprehensive metabolic panel (non-fasting) (08/13/2020 10:06 AM EDT) Glucose 83 65 - 199 mg/dL [facility] Comment:Diabetes: >=200 mg/d L plus symptoms Blood Urea Nitrogen 14 10 - 20 mg/dL [facility] Creatinine 1.04 0.80 - 1.50 mg/dL [facility] Sodium 139 135 - 145 mmol/L [facility] Potassium 4.7 3.5 - 5.0 mmol/L [facility] Comment: Please note: ??Patients with WBC >100,000 may have falsely elevated Potassium levels. ??For accurate Potassium quantification in these patients send serum separator tube (gold top) for subsequent determinations. ??Contact the Clinical Chemistry Laboratory if there are any questions. Chloride 104 98 - 107 mmol/L [facility] Carbon Dioxide 26 22 - 31 mmol/L [facility] Anion Gap 9 5 - 15 mmol/L [facility] Calcium 9.7 8.5 - 10.5 mg/dL [facility] Protein, Total 7.9 6.1 - 8.0 gm/dL [facility] Albumin 4.8 3.2 - 5.2 gm/dL [facility] Aspartate Aminotransferase 45(H) 0 - 39 unit/L [facility] Alanine Aminotransferase 66(H) 0 - 55 unit/L [facility] Alkaline Phosphatase 50 40 - 130 unit/L [facility] Bilirubin, Total 0.7 0.2 - 1.3 mg/dL [facility] Est Glomerular Filtration Rate 95 >=60 mL/min/1. 73 m?? [facility] Comment: This patient? s estimated glomerular filtration rate (eGFR) is between 95 mL/min/1.73 m2 (patients with less muscle mass per kg body weight) and 110 mL/min/1.73 m2 (patients with more muscle mass per kg body weight) as determined by the CKD-EPI equation. Assessment of eGFR is not appropriate when creatinine concentrations are rapidly changing. For clinical decisions where creatinine clearance will affect therapy, a 24-hour urine creatinine clearance may be advised. Assignment of CKD stage 1 - 5 for patients with an eGFR near the transition point between stages may be based on clinical assessment of muscle mass and symptoms in addition to eGFR. Blood specimen (specimen) 08/13/2020 10:06 AM EDT 08/13/2020 10:12 AM EDT Narrative Resulting Agency Comment Spec In Lab Chelsea Reyes MD CHEMISTRY ORDERABLES [facility] [place] [address] * [id number] (08/13/2020 9:00 AM EDT) Narrative Chelsea Reyes MD - 08/13/2020 9:00 AM EDT Chelsea Reyes MD ? 08/13/2020 ??9:52 AM [facility] Liver Fibrosis Assessment Report Indication: ?? Elevated liver enzymes Performed by: ??Chelsea Reyes MD Procedure: Vibration Controlled Transient Elastography (VCTE) or Fibroscan [place] Protocol: Patient's identity, procedure and site were verified, confirmatory pause performed. Discussed procedure including risks and potential complications. Questions answered. Patient verbalizes understanding and wishes to proceed with Fibroscan assessment. Patient was placed in the supine position with right arm in maximum abduction to allow optimal exposure of right lateral abdomen. Patient was briefly assessed. Testing was performed in the mid-axillary location. 50Hz Shear Wave pulses were applied and the resulting Shear Wave and Propagation Speed was detected with a 3.5MHz ultrasonic signal, using the Fibroscan probe. Skin to liver capsule distance and liver parenchyma were accessed during the entire examination with the Fibroscan probe. Patient was instructed to breathe normally and abstain from sudden movements during the procedure. At least ten Sheer Waves were produced; individual measurements of each Shear Wave were calculated. Patient tolerated the procedure well with no complications. Fibroscan Results: Median kPa: 4.1 Mean IQR: 17% (goal is <30 %) Number of valid measurements: 11 (at least 10 required) Number of invalid measurements: 0 Predicted fibrosis stage: F0-1 CAP (dB/m): 356 Estimated steatosis grade: 3/3 % hepatocytes affected: >66% Interpretation: Based on this Fibroscan result, history, clinical examination and review of laboratory and radiological data, this patient likely has stage F0-1 liver fibrosis. Chelsea Reyes MD PROCEDURE/MINOR SURG ICAL ORDERABLES documented in this encounter Visit Diagnoses Diagnosis Elevated liver enzymes Nonspecific elevation of levels of transaminase or lactic acid dehydrogenase (LDH) documented in this encounter Care Teams Supervisor Wash House Relationship Specialty Start Date End Date Christi Oneill APRN [address] [place] [address] PCP - General Family Medicine 03/06/19 documented as of this encounter
--- OUTSIDE RECORDS SUMMARY | 2024-02-01 14:53 | XMS_ITS | Encounter Summary ---
Author Organization [facility] Mundo ricatiffanie [place] [address] Care Team Providers Care Finishing Supervisor Plastic Sheets Name Role Phone Christi Oneill APRN Primary Care Provider +1 [phone] Encounter Details Date Type Department Care Team (Late st Contact Info) Description 04/11/2019 Ancillary Procedure Radiology Library at [facility] [place] [address] Usha Boyd MD [address] [place] [address] [address] [place] [address] Social History Tobacco Use Types Packs/Day Years [...] FILM LIBRARY STORAGE ONLY DX SPINE Routine 04/11/2019 12:00 AM EST documented in this encounter Results * Film Library- Storage Only DX Spine (04/11/2019 12:00 AM EST) Narrative ELEANOR WHATLEY - 04/17/2019 8:38 PM EST This exam is auto-finalizing. It's purpose is for storage only. S Leonardo Boyd MD G FILM LIBRARY ORD ERABLES [place] documented in this encounter Visit Diagnoses Not on filedocumented in this encounter Care Teams Finishing Supervisor Plastic Sheets Relationship Specialty Start Date End Date Christi Oneill APRN [address] [place] [address] PCP - General Family Medicine 03/06/19 documented as of this encounter
--- OUTSIDE RECORDS SUMMARY | 2024-02-01 14:53 | XMS_ITS | Encounter Summary ---
Author Organization [facility] [place] [address] Care Team Providers Care Planning Aide Name Role Phone Christi Oneill BENTON Primary Care Provider [phone] [phone] Encounter Details Date Type Department Care Team (Latest Contact Info) Description 05/27/2019 10:02 AM EST - 05/27/2019 11:26 AM EST Hospital Encounter XRay at [address] [place] [address] [facility] [place] [address] Closed displaced fracture of third cervical vertebra, unspecified fracture morphology, initial encounter Discharge Disposition: Home Social History Tobacco Use Types Packs/Day Years Used Date Smoking Tobacco: Never Smokeless Tobacco: Never Alcohol Use Standard Drinks/Week Comments Not Currently 0 (1 standard drink = 0.6 oz pur e alcohol) Sex and Gender Information Value Date Recorded Sex Assigned at Not on file Gender Identity Not on file Sexual Orientation Not on file documented as of this encounter Medications at Time of Discharge Medication Sig Dispensed Refills Start Date End Date losartan (COZAAR) 100 mg Tablet TAKE ONE TABLET BY MOUTH EVERY DAY 3 12/27/2018 metoprolol succinate XL (TOPROL-XL) 25 mg Tablet Sustained Release 24 hr TAKE ONE TABLET BY MOUTH EVERY DAY 3 12/27/2018 acetaminophen (Tylenol) 325 mg Tablet Take 650 mg by mouth every 4 hours as needed for Pain. 08/13/2020 cyclobenzaprine (FLEXERIL) 10 mg Tablet Take 1 tablet by mouth 3 times daily as needed for Muscle spasms. 28 tablet 03/12/2019 08/13/2020 documented as of this encounter Plan of Treatment Not on file documented as of this encounter Procedures Procedure Name Priority Date/Time Associated Diagnosis Comments XR CERVICAL SPINE 2 OR 3 VIEWS Routine 05/27/2019 10:21 AM EST Closed displaced fracture of third cervical vertebra, unspecified fracture morphology, initial encounter documented in this encounter Results * XR Cervical Spine [...] report, please contact the number below. ? Electronically signed by: ELEANOR Aparicio [facility] ([phone]), at 05/27/2019 11:55 AM Narrative 05/27/2019 11:55 AM EST EXAMINATION: XR [...] this report, please contact the number below. Trey Odonnell MD IMG DX ORDERABLES documented in this encounter Visit Diagnoses Diagnosis Closed displaced fracture of third cervical vertebra, unspecified fracture morphology, initial encounter documented in this encounter Care Teams Planning Aide Relationship Specialty Start Date End Date Christi Oneill APRN [address] [place] [address] PCP - General Family Medicine 03/06/19 documented as of this encounter
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
--- OUTSIDE RECORDS SUMMARY | 2024-02-01 14:53 | XMS_ITS | Referral Summary ---
Author Organization [facility] Address [address] [place] [address] Care Team Providers Care Pantry Steward/Stewardess Name Role Phone Unknown, Provider Primary Care [...] Orientation Not on file Plan of Treatment Not on file Care Teams Pantry Steward/Stewardess Relationship Specialty Start Date End Date Unknown, Provider, PCP - General 10/07/21
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
--- OUTSIDE RECORDS SUMMARY | 2024-02-01 14:53 | XMS_ITS | Encounter Summary ---
Author Organization [facility] [place] [address] Care Team Providers Care Cut Off Saw Operator Name Role Phone Christi Oneill BENT[place] Primary Care Provider [phone] [phone] Encounter Details Date Type Department Care Team (Late st Contact Info) Description 03/13/[address] [facility] [place] [address] Kimberly Coyle Social History Tobacco Use Types Packs/Day Years [...] * Telephone Encounter - Jeanette Leon - 04/18/2019 12:00 PM EST Fernando, Pt XR images and report in eDH for review and results call. kerri * Telephone Encounter - Arin Summers - 04/17/2019 1:31 PM EST Pt called for xray results, xray report in edh, Faxed request to [facility] to push images from 04/11/19. DPS to review and call pt. * Telephone Encounter - Carisa Roberts - 04/14/2019 4:48 PM EST Xrays not completed as of 04/14/19. Postponing 1 week. * Telephone Encounter - Carisa Roberts - 03/19/2019 4:19 PM EST xrays expected around 04/09/18-04/23/18. Postponing to check on completion during that time. * Telephone Encounter - Kimberly Coyle - 03/13/2019 8:33 AM EST Faxed XR orders and demo to [facility]- F:[phone] Please advise Fernando when images are available * Telephone Encounter - Kimberly Coyle - 03/13/2019 8:33 AM EST Fernando Pacheco PA Sent: SunMarch 12, 2019 ??3:25 PM To: Trey Odonnell MD; P [facility] [place] Sriram Hobson ( ) : 1990> ?? Follow-up and Dispositions Check-out Note: 1) XR cervical spine in 4-6 weeks, patient will do at [place], please [facility]Transfer images to [facility] documented in this encounter Plan of Treatment Not on file documented as of this encounter Visit Diagnoses Not on filedocumented in this encounter Care Teams Cut Off Saw Operator Relationship Specialty Start Date End Date Christi Oneill APRN [address] [place] [address] PCP - General Family Medicine 03/06/19 documented as of this encounter
--- OUTSIDE RECORDS SUMMARY | 2024-02-01 14:53 | XMS_ITS | Encounter Summary ---
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
--- OUTSIDE RECORDS SUMMARY | 2024-02-01 14:53 | XMS_ITS | Encounter Summary ---
[place] [address] Care Team Providers Care Metals Analyst Name Role Phone Christi Oneill APRN Primary Care Provider +1 [phone] Encounter Details Date Type Department Care Team (Late st Contact Info) Description 03/05/2019 Telephone [place] [address] Zach Begum MD [facility] [place] [address] Social History Tobacco Use Types Packs/Day Years Used Date Smoking Tobacco: Never Assessed Sex and Gender Information Value Date Recorded Sex Assigned at Not on file Gender Identity Not on file Sexual Orientation Not on file documented as of this encounter Plan of Treatment Not on file documented as of this encounter Visit Diagnoses Not on filedocumented in this encounter Care Teams Metals Analyst Relationship Specialty Start Date End Date Christi Oneill APRN [address] [place] [address] PCP - General Family Medicine 03/06/19 documented as of this encounter
[2024-02-01 20:47] LABS: Abs Immature Grans 0.02 10^3/uL (0.0-0.06); Absolute Basophil Count 0.02 10^3/uL (0.0-0.2); Absolute Eosinophil Count 0.21 10^3/uL (0.0-0.7); Absolute Lymphocyte Count 2.18 10^3/uL (1.2-3.4); Absolute Monocyte Count 0.42 10^3/uL (0.1-0.8); Absolute Neutrophil Count 3.21 10^3/uL (1.2-6.7); Basophils % 0.3 %; Eosinophils % 3.5 %; HCT 42.6 % (40.0-50.0); HGB 14.7 g/dL (13.5-17.5); Immature Grans % 0.3 %; MCH 29.3 pg (27.0-33.0); MCHC 34.5 % (32.0-36.0); MCV 85 fL (80-95); MPV 10.8 fL (8.0-11.0); Monocytes % 6.9 %; Platelet Count 316 10^3/uL (130-400); RBC 5.02 10^6/uL (4.36-5.78); RDW 11.9 % (11.8-14.1); RDW-SD 36.3 fL; WBC 6.06 10^3/uL (4.4-10.8)
[2024-02-01 21:11] LABS: ALT 50 U/L (16-63); AST 28 U/L (15-37); Albumin 4.3 g/dL (3.4-5.0); Alkaline Phosphatase 58 U/L (46-116); Anion Gap 10.4 mmol/L (3-11); BUN 15 mg/dL (7-18); Bilirubin, Total 0.82 mg/dL (0.2-1.0); CO2 27.6 mmol/L (21.0-32.0); CREATININE 1.1 mg/dL (0.70-1.30); Calcium 9.5 mg/dL (8.5-10.1); Chloride 104 mmol/L (98-107); Estimated GFR 89.22 (mL/min/1.73m2); Ferritin 455 ng/mL (26-388); Glucose 79 mg/dL (74-106); Potassium 4.2 mmol/L (3.5-5.1); Sodium 142 mmol/L (136-145); Total Protein 7.8 g/dL (6.4-8.2)
== END 2024-02-01 14:42 | disposition home or self-care (01) ==
LOC: NCHCN 14:41
PROVIDERS: PCP Nurse Practitioner Family; Visit Provider Nurse Practitioner Family
DX: K76.0 Fatty (change of) liver, not elsewhere classified (principal)
CPT/HCPCS: 80053; 82728; 85025

== ENCOUNTER 2024-08-08 00:28 | Outpatient (CLI) | payer OTHER, SELFPAY ==
--- NOTE | 2024-08-08 | DI.RAD_ITS ---
Exam(s) XR SHOULDER RT COMPLETE 2+V EXAM: XR SHOULDER RT COMPLETE 2+V CLINICAL HISTORY: PAIN RT SHOULDER M25.511 CHRONIC PAIN G89.29. TECHNIQUE: 2D digital imaging was performed. COMPARISON: No exams were available for comparison FINDINGS: Four views No evidence of fracture or dislocation nor abnormal soft tissue calcifications. There are no degener ative changes in the glenohumeral joint. However, there are moderate degenerative changes in the AC joint with some joint space narrowing and also downgoing osteophytes on both the clavicular and acrom ial sides of the joint. There also appears to be a small calcification in the subacromial space or s mall focal osteophytic ridge on the undersurface of the acromion, this visible only on the Gr[place] vi ew. IMPRESSION: Subacromial space findings at the AC joint and acromion as described above. May be an element of imp ingement upon the rotator cuff mechanism here. DATA REPOSITORY: RADIATION DOSE DELIVERED:
== END 2024-08-08 00:48 ==
LOC: DI 00:28
PROVIDERS: PCP Nurse Practitioner Family; Visit Provider Nurse Practitioner Family
DX: M19.011 Primary osteoarthritis, right shoulder (principal); R93.89 Abnormal findings on diagnostic imaging of other specified body structures
CPT/HCPCS: 73030

== ENCOUNTER 2025-03-27 16:21 | Outpatient (REF) | payer OTHER, SELFPAY ==
[2025-03-27 20:46] LABS: Abs Immature Grans 0.01 10^3/uL (0.0-0.06); HCT 42.4 % (40.0-50.0); HGB 14.4 g/dL (13.5-17.5); Immature Grans % 0.2 %; MCH 28.8 pg (27.0-33.0); MCHC 34.0 % (32.0-36.0); MCV 85 fL (80-95); MPV 11.2 fL (8.0-11.0); Platelet Count 284 10^3/uL (130-400); RBC 5.00 10^6/uL (4.36-5.78); RDW 11.4 % (11.8-14.1); RDW-SD 34.8 fL; WBC 5.94 10^3/uL (4.4-10.8)
[2025-03-27 21:01] LABS: ALT 33 U/L (10-49); AST 31 U/L (<34); Albumin 4.8 g/dL (3.2-5.0); Alkaline Phosphatase 68 U/L (46-116); Anion Gap 7.6 mmol/L (3-11); BUN 16 mg/dL (9-23); Bilirubin, Total 0.5 mg/dL (0.2-1.2); CO2 29.4 mmol/L (20.0-31.0); Calcium 9.3 mg/dL (8.3-10.6); Chloride 105 mmol/L (98-107); Cholesterol 108 mg/dL (<200); Glucose 60 mg/dL (74-106); HDL Cholesterol 40 mg/dL (>or=40); Potassium 4.1 mmol/L (3.5-5.1); Sodium 142 mmol/L (136-145); Total Protein 7.8 g/dL (5.7-8.2)
== END 2025-03-27 16:22 | disposition home or self-care (01) ==
LOC: NCHCN 16:21
PROVIDERS: PCP Nurse Practitioner Family; Visit Provider Nurse Practitioner Family
DX: I10 Essential (primary) hypertension (principal); K76.0 Fatty (change of) liver, not elsewhere classified
CPT/HCPCS: 80053; 80061; 85025